=== PATIENT | female | born 1985 | race Caucasian/White ===

== ENCOUNTER → 2018-07-26 13:22 | Outpatient (CLI) | payer OTHER, MEDICAID, SELFPAY | PROVIDERS: Family Provider Nurse Practitioner Family; PCP Nurse Practitioner Family; Referring Provider Psychiatry & Neurology Neurology; Visit Provider Psychiatry & Neurology Neurology | DX: M62.838 Other muscle spasm (principal) ==

== ENCOUNTER 2018-07-26 14:07 | Emergency (ER) | payer OTHER, MEDICAID, SELFPAY ==
[2018-07-26 14:10] VITALS: BP 138/72; PULSE 100; PULSE 93; RESP 14; RESP 18; TEMP 36.7; O2SAT 99; BMI 36.6
--- NOTE | 2018-07-26 14:17 | ED.VISSUMM ---
- ER Visit Summary Date of Service: 07/26/18 Chief Complaint: Patient presents from MRI because of body stiffness and change in mental status History of Present Illness: The patient is a 32 F who was undergoing MRI of her brain to evaluate for possible seizure. EEG was reported as negative. She states these episodes of motor/body stiffness are debilitating and she is now not able to work. She does admit to depression and anxiety. She states while the scan was being performed her mind was clear . I was informed by 1 of the nurses from the ER who responded to the [employer]PER[employer] that her fingers were in flex position and consistent with carpal spasm. She apparently was sitting up on the table when staff arrived. She denies headache, visual, ocular auditory symptoms. She denies neck pain or neck stiffness. She denies cardiac or respiratory symptoms. She denies nausea, vomiting or diarrhea. She denies urologic symptoms. She denies myalgias or arthralgias. She denies joint pain or joint swelling. She is unaware of any rash or lesions. Physical Examination: Vital signs noted and blood pressure is slightly elevated 138/72. Patient had tears as I entered the room. Head is atraumatic normocephalic. Pupils are equal round reactive. Extraocular muscles are intact. TMs are pearly white with landmarks noted. Nares patent with no drainage. Posterior pharynx without erythema or exudate. Uvula is midline. There is no dysphonia or dysphasia. Trachea is midline. There is no stridor with auscultation of the neck. Bilateral Chvostek sign noted bilaterally. Heart is regular without murmur, gallop or rub. S1 and S2 are normal. Lungs are clear to auscultation with good movement of air bilaterally. Patient is alert and oriented ?3. Motor is 5 over 5. Sensory is intact. DTRs are symmetric with no clonus or Babinski sign. Cranial 2 through 12 are intact. Cerebellar testing is normal. Test Results: Basic metabolic panel is normal. Emergency Department Course and Treatment: We will obtain electrolytes since there are no prior labs. With history of carpal spasm bilateral Chvostek sign suspect patient is hyperventilating. Because of her hyperventilation is unknown and no other indication to obtain basic metabolic panel. Patient was reassessed at 1438. She was standing up in her room. She was informed of results. She is now smiling. She appears no distress. She does report improvement after 0.5 mg of Ativan p.o. Treatment Plan: Follow-up with PCP Disposition: Discharged home in stable improved condition Impression: Hyperventilation syndrome unknown etiology This note was generated with [employer] dictation software. It may contain incorrect words, spelling, and punctuation that were not noted in review of the chart prior to signing ED Disposition - Plan for ED Patient: Disposition: Home or Assisted Living Chief Complaint: Mental Status Change Instructions: ED Hyperventilation Syndrome Referrals: Priya Trevizo NP-C [Primary Care Provider] - 1 Week
[2018-07-26] MEDS: LORazepam 0.5 MG Tablet PO (14:21)
[2018-07-26 14:35] LABS: Anion Gap 10 (5-15); BUN 8 mg/dL (7-18); BUN/Creat Ratio 9.9 RATIO (10-20); Calcium,Total 9.6 mg/dL (8.5-10.1); Chloride 106 mmol/L (98-107); Creatinine, Serum 0.81 mg/dL (0.55-1.02); EST Glomerular Filtration Rate 88 mL/min (>60); Est Glom Filt Rate - Afr Amer 107 mL/min (>60); Estimated Creatinine Clearance 91.38 ml/min; Glucose 89 mg/dL (74-106); Potassium 3.9 mmol/L (3.5-5.1); Sodium Level 138 mmol/L (136-145)
[2018-07-26 14:48] VITALS: BP 128/78; PULSE 90; RESP 14; O2SAT 98
== END 2018-07-26 14:49 | disposition home or self-care (01) ==
PROVIDERS: Emergency Provider Emergency Medicine; Family Provider Nurse Practitioner Family; PCP Nurse Practitioner Family
DX: F45.8 Other somatoform disorders (principal); F32.9 Major depressive disorder, single episode, unspecified; F41.9 Anxiety disorder, unspecified; E66.9 Obesity, unspecified; Z68.36 Body mass index [BMI] 36.0-36.9, adult; Z79.899 Other long term (current) drug therapy
CPT/HCPCS: 80048; 99283

== ENCOUNTER → 2018-08-04 10:35 | Outpatient (CLI) | payer OTHER, MEDICAID, SELFPAY ==
--- NOTE | 2018-08-04 10:45 | MRI_ITS ---
STUDY: MRI BRAIN WITHOUT CONTRAST REASON FOR EXAM: Female, 32 years old. Muscle spasms and shaking. Seizure-like activity. TECHNIQUE: Standardized multiplanar fat and water weighted pulse sequences were obtained. COMPARISON: None. FINDINGS: There is no intracranial mass, hemorrhage, territorial infarct or acute ischemia. Temporal lobes are symmetric bilaterally. Hippocampi are unremarkable. There is no evidence of mesial temporal sclerosis. Normal size of the ventricles and extra-axial spaces for the patient's age. Normal white matter tracts of the supratentorial brain. Normal bilateral basal ganglia. Normal thalami. There is no extra-axial fluid accumulation. Normal flow voids within the major intracranial circulation suggesting patency by spin echo criteria. Normal sella turcica, pituitary gland, infundibular stalk, optic chiasm and hypothalamus. Normal tectal plate and pineal gland. Normal midbrain, qasim and medulla. Normal cerebellum. Normal basal cisterns. Normal bilateral temporal bones. Normal bilateral internal auditory canals. No demonstrated orbital abnormality, within the constraints of a routine brain study. Normal visualized paranasal sinuses. Normal calvarium and skull base. Normal visualized soft tissue structures. Normal visualized upper cervical spine. MRI/Brain without Contrast IMPRESSION: Normal unenhanced MRI of the brain. Electronically Signed: Elba Escalona MD at 21:30 EST Tel , Service support ,
== END ==
PROVIDERS: Family Provider Nurse Practitioner Family; PCP Nurse Practitioner Family; Referring Provider Psychiatry & Neurology Neurology; Visit Provider Psychiatry & Neurology Neurology
DX: M62.838 Other muscle spasm (principal)
CPT/HCPCS: 70551